=== PATIENT | female | born 1965 | race African-American/Black ===

== ENCOUNTER 2019-11-20 14:51 | Emergency (ER) | payer SELFPAY ==
[2016-04-30 15:00] VITALS: BP 98/52
[~2019-11-20] VITALS: Ht 167.6 cm; Wt 113.0 kg
[~2019-11-20 14:51] MED LIST: ACET325T9 PO; ASEN10TA9 SL; DIPH25TA64 PO; FAMO20TA5 PO; HYDR-2761 PO; HYDR12.58 PO; MULT-445 PO; TRIA15CR3 TP
--- NOTE | 2019-11-20 18:01 | RAD ---
Three-view right knee dated 11/20/2019. No comparison available. Clinical data indication: Pain after injury. FINDINGS: 3 views right knee show normal bony alignment. No displaced fracture. No acute osseous or articular abnormality. No apparent joint effusion or loose body. Mild tricompartmental degenerative changes. IMPRESSION: No acute radiographic abnormality. Electronically signed by: Nando Cho MD (11/20/2019 5:59 PM) PETE
--- NOTE | 2019-11-20 18:52 | PHYS DOC ---
Past Medical History Past Medical History: Bipolar, Hypertension, Other Additional Past Medical Histor: Hep C, HERNIA Past Surgical History: , Other Additional Past Surgical Histo: jaw surgery, TOOTH SURGERY Smoking Status: Current Some Day Smoker Alcohol Use: Occasionally Drug Use: None General Adult EDM: Chief Complaint: MECHANICAL FALL HPI: HPI: Patient is a 54 year old AA female, accompanied by her spouse, who presents to the emergency department with complaints of right anterior knee pain after falling down three or four steps yesterday while at religious. she denies any head injury or loss of consciousness. Patient states she has been able to ambulate using a cane. She denies any numbness, tingling, weakness of her affected extremity. She currently rates the pain in her knee a 10/10 on the pain scale. She denies any radiation of the pain, the pain in her knee is worse with movemen t and palpation. patient states she is taking Tylenol at home for relief the pain with no benefit. Review of Systems: Review of Systems: Constitutional: Denies fever or chills. [] Respiratory: Denies cough or shortness of breath. [] Musculoskeletal: Denies back pain; see HPI Integument: Denies rash. [] Neurologic: Denies headache, focal weakness or sensory changes. [] Psychiatric: Denies depression or anxiety. [] Heart Score: Risk Factors: Risk Factors: DM, Current or recent (<one month) smoker, HTN, HLP, family history of CAD, obesity. Risk Scores: Score 0 - 3: 2.5% MACE over next 6 weeks - Discharge Home Score 4 - 6: 20.3% MACE over next 6 weeks - Admit for Clinical Observation Score 7 - 10: 72.7% MACE over next 6 weeks - Early Invasive Strategies Allergies: Allergies: Allergies Coded Allergies Type Severity Reaction Last Updated Verified hydromorphone Allergy Severe SEVERE ITCHING 04/29/16 Yes aspirin Allergy Intermediate 04/30/16 Yes codeine Allergy Intermediate 04/28/16 Yes ibuprofen Allergy Intermediate 04/30/16 Yes morphine Allergy Intermediate 04/30/16 Yes naproxen Allergy Intermediate 04/28/16 Yes oxycodone HCl Allergy Intermediate 04/30/16 Yes Physical Exam: PE: Constitutional: Well developed, well nourished, no acute distress, non-toxic appearance, obese. [] HENT: Normocephalic, atraumatic, bilateral external ears normal, nose normal. [] Eyes: PERRLA, conjunctiva normal, no discharge. [] Neck: Normal range of motion, no stridor. [] Cardiovascular:Heart rate regular rhythm Lungs & Thorax: respirations even and unlabored, no retractions, no distress Skin: Warm, dry; erythema and abrasion noted to lateral right anterior knee without active bleeding or drainage Extremities: right knee: anterior tenderness to palpation, no crepitus, no obvious deformity, ROM testing limited due to patient's pain intolerance, patient unable to tolerate anterior or posterior drawer testing, no cyanosis, 1+ edema. [] Neurologic: Alert and oriented X 3, normal sensory function, no focal deficits noted. [] Psychologic: Affect normal, judgement normal, mood normal. [] Current Patient Data: Vital Signs: Vital Signs Date Time Temp Pulse Resp B/P (MAP) Pulse Ox O2 Delivery O2 Flow Rate FiO2 11/20/19 15:35 98.4 99 20 Room Air 98.4 EKG: EKG: [] Radiology/Procedures: Radiology/Procedures: PROCEDURE: KNEE RIGHT 3V Three-view right knee dated 11/20/2019. No comparison available. Clinical data indication: Pain after injury. FINDINGS: 3 views right knee show normal bony alignment. No displaced fracture. No acute osseous or articular abnormality. No apparent joint effusion or loose body. Mild tricompartmental degenerative changes. IMPRESSION: No acute radiographic abnormality. [] Course & Med Decision Making: Course & Med Decision Making Pertinent Labs and Imaging studies reviewed. (See chart for details) [] Dragon Disclaimer: Dragon Disclaimer: This electronic medical record was generated, in whole or in part, using a voice recognition dictation system. Departure Departure Impression: Primary Impression: Right anterior knee pain Disposition: 01 HOME, SELF-CARE Condition: STABLE Referrals: NO PCP (PCP) BRONWYN ANDREWS MD Patient Instructions: Knee Pain, [id number] Additional Instructions: Tylenol or ibuprofen as needed for pain.. Recommend application of ice, elevation, and rest of affected extremity. Wear the knee immobilizer that was placed until follow-up appointment with Dr. Andrews, call his office to schedule an appointment tomorrow. Return to the ER if your symptoms worsen. Justicifation of Admission Dx: Justifications for Admission: Justification of Admission Dx: N/A Splinting Splinting : Location: Right knee Pre-Made Type: knee immobilizer Pre-Proc Neuro Vasc Exam: normal Post-Proc Neuro Vasc Exam: normal, unchanged from pre-exam DENNIS ESPINOZA [employer] Nov 20, 2019 18:52
== END 2019-11-20 19:00 | disposition home or self-care (01) ==
LOC: ER 14:51
DX: M25.561 Pain in right knee (principal); I10 Essential (primary) hypertension; F31.9 Bipolar disorder, unspecified; F17.200 Nicotine dependence, unspecified, uncomplicated; Z98.890 Other specified postprocedural states; Z88.5 Allergy status to narcotic agent; Z88.6 Allergy status to analgesic agent; Z88.8 Allergy status to other drugs, medicaments and biological substances
CPT/HCPCS: 29505; 73562; 99284

== ENCOUNTER → 2020-12-02 | Outpatient (CLI) | payer OTHER ==
[2016-04-30 15:00] VITALS: BP 98/52
--- NOTE | 2020-12-02 17:08 | RAD ---
EXAM: 3 views cervical spine. DATE: 12/02/2020 12:14 PM CLINICAL HISTORY: Reason: NECK AND LOW BACK PAIN / Spl. Instructions: / History: COMPARISON: None available. FINDINGS: On the lateral view, the cervical spine is imaged from the skull base to C7. Vertebral body heights are preserved. Intervertebral disc heights are preserved. Straightening of the normal cervical lordosis. No spondylolisthesis. Normal predental space. No significant prevertebral soft tissue swelling. IMPRESSION: No acute fracture or subluxation of the cervical spine. Electronically signed by: Juan Gamez MD (12/02/2020 5:06 PM) [email or web address]
--- NOTE | 2020-12-02 17:20 | RAD ---
EXAM: AP and lateral views of the lumbar spine DATE: 12/02/2020 12:14 PM INDICATION: Reason: NECK AND LOW BACK PAIN / Spl. Instructions: / History: COMPARISON: No Prior FINDINGS: There is transitional lumbosacral anatomy with partial lumbarization of S1. Vertebral body heights are preserved. Disc heights are preserved. Moderate facet degenerative change L4-5, L5-S1. No spondylolisthesis. No acute fracture. IMPRESSION: No acute fracture or subluxation. Degenerative changes lower lumbar spine. Transitional lumbosacral anatomy with partial lumbarization of S1. Electronically signed by: Juan Gamez MD (12/02/2020 5:17 PM) [email or web address]
== END ==
LOC: RAD 11:48
PROVIDERS: ATTEND Anesthesiology Pain Medicine
DX: M47.817 Spondylosis without myelopathy or radiculopathy, lumbosacral region (principal); Z02.71 Encounter for disability determination; M54.2 Cervicalgia
CPT/HCPCS: 72040; 72100